=== PATIENT | female | born 1935 | race Caucasian/White ===

== ENCOUNTER 2021-09-03 18:27 | Observation (INO) | payer MEDICARE ==
[2021-09-03 18:47] LABS: #Eosinphils 0.5 thou/uL (0.0-0.7); #Lymphocytes 1.7 thou/uL (1.20-3.40); #Monocytes 0.8 thou/uL (0.11-0.59); #Neutrophils 3.9 thou/uL (1.40-6.50); %Basophils 0.7 % (0.0-1.0); %Eosinophils 6.9 % (0.0-10.0); %Lymphocytes 24.8 % (21.0-51.0); %Monocytes 11.6 % (0.0-10.0); Hemoglobin 13.6 g/dL (12.0-16.0); Mean Corpuscular HGB CONC 34.4 g/dL (32.0-36.0); Mean Corpuscular Hemoglobin 33.9 pg (27.0-31.0); Mean Corpuscular Volume 98.4 fL (78.0-98.0); Mean Platelet Volume 7.3 fL (7.4-10.4); Platelet Count 232 thou/uL (130-400); RBC Distribution Width 12.3 % (11.5-14.5); White Blood Cell (WBC) Count 6.9 thou/uL (4.8-10.8)
[2021-09-03 18:57] LABS: INR-International Normal Ratio 1.3; Prothrombin Time 16.4 sec (12.0-14.7)
[2021-09-03 18:59] LABS: PTT 33.8 sec (22.9-36.1)
[2021-09-03 19:09] LABS: ALT (SGPT) 41 U/L (8-55); AST (SGOT) 48 U/L (5-34); Albumin 3.8 g/dL (3.4-4.8); Alkaline Phosphatase 110 U/L (40-110); Anion Gap 15 mmol/L (10-20); BUN (Urea Nitrogen) 47 mg/dL (9.8-20.1); Bilirubin, Total 0.6 mg/dL (0.2-1.2); CK (CPK) 72 U/L (29-168); Calc. Creatinine Clearance 0 mL/min (70-130); Calcium 9.3 mg/dL (7.8-10.44); Carbon Dioxide 30 mmol/L (23-31); Chloride 90 mmol/L (98-107); Globulin 3.1 g/dL (2.4-3.5); Glucose 102 mg/dL (83-110); Potassium 3.8 mmol/L (3.5-5.1); Protein, Total 6.9 g/dL (5.8-8.1); Sodium 131 mmol/L (136-145)
[2021-09-03] MEDS ORDERED: Aspirin Chewable 81 MG TAB ONE (19:31)
[2021-09-03 22:08] LABS: Bilirubin Negative (Negative); Blood, Urine Negative (Negative); Clarity Clear (Clear); Glucose, Urine (Dipstick) Normal (Negative); Ketone, Urine Negative (Negative); Leukocyte Negative Leu/uL (Negative); Nitrite Negative (Negative); Protein, Urine (Dipstick) Negative (Neg-Trace); Specific Gravity, Urine 1.011 (1.002-1.036); Urobilinogen Normal mg/dL (Less than 2); pH, Urine 6.5 (5.0-9.0)
[2021-09-03] MEDS ORDERED: Acetaminophen 325 MG TAB PO PRN (23:03)
[2021-09-03] MEDS ORDERED: Ondansetron PF 4 MG/2 ML Vial IVP PRN (23:03)
[2021-09-03] MEDS ORDERED: Sodium Chloride 0.9% 1,000 ML IV SCH (23:45)
[2021-09-03] MEDS ORDERED: hydrALAZINE 20 MG/ML VIAL SLOW IVP PRN (23:49)
[2021-09-04 00:38] LABS: SARS-CoV-2 NAA Rapid Test Not Detected (NotDetected)
[2021-09-04 02:58] LABS: #Eosinphils 0.5 thou/uL (0.0-0.7); #Lymphocytes 1.6 thou/uL (1.20-3.40); #Monocytes 0.7 thou/uL (0.11-0.59); #Neutrophils 3.4 thou/uL (1.40-6.50); %Basophils 0.8 % (0.0-1.0); %Eosinophils 8.5 % (0.0-10.0); %Lymphocytes 25.4 % (21.0-51.0); %Monocytes 11.2 % (0.0-10.0); %Neutrophils 54.2 % (42.0-75.0); Hemoglobin 12.3 g/dL (12.0-16.0); Mean Corpuscular HGB CONC 34.9 g/dL (32.0-36.0); Mean Corpuscular Hemoglobin 33.8 pg (27.0-31.0); Mean Corpuscular Volume 96.8 fL (78.0-98.0); Mean Platelet Volume 7.2 fL (7.4-10.4); Platelet Count 205 thou/uL (130-400); RBC Distribution Width 12.1 % (11.5-14.5); Red Blood Cell (RBC) Count 3.65 mill/uL (4.20-5.40); White Blood Cell (WBC) Count 6.2 thou/uL (4.8-10.8)
[2021-09-04 03:33] LABS: Chloride 90 mmol/L (98-107); Sodium 127 mmol/L (136-145)
[2021-09-04 03:34] LABS: Calcium 8.9 mg/dL (7.8-10.44); Glucose 117 mg/dL (83-110); Triglycerides 95 mg/dL (Less than 150)
[2021-09-04 03:36] LABS: Anion Gap 13 mmol/L (10-20); Carbon Dioxide 27 mmol/L (23-31)
[2021-09-04 03:37] LABS: Calc. Creatinine Clearance 0 mL/min (70-130)
[2021-09-04 03:38] LABS: BUN (Urea Nitrogen) 43 mg/dL (9.8-20.1)
[2021-09-04 03:39] LABS: Cholesterol 120 mg/dl (< 200 Desired)
[2021-09-04 03:40] LABS: Cardiac Risk 2.5 (Less than 4.5); HDL Cholesterol 48 mg/dL (>60 Neg Risk); LDL Cholesterol, Calculated 53 mg/dL
[2021-09-04] MEDS ORDERED: Potassium Chloride 20 MEQ TAB PO SCH (04:15)
[2021-09-04] MEDS ORDERED: Potassium Chloride 20 MEQ TAB ONE (04:32)
[2021-09-04] MEDS ORDERED: Heparin 5,000 UNITS/ML VIAL SC SCH (09:00)
[2021-09-04] MEDS: Aspirin 81 mg Enteric Coated Tablet PO SCH (10:26)
[2021-09-04 11:07] VITALS: BMI 27.9
[2021-09-04 11:17] LABS: Anion Gap 14 mmol/L (10-20); BUN (Urea Nitrogen) 36 mg/dL (9.8-20.1); Calc. Creatinine Clearance 40 mL/min (70-130); Calcium 9.4 mg/dL (7.8-10.44); Carbon Dioxide 26 mmol/L (23-31); Chloride 93 mmol/L (98-107); Glucose 119 mg/dL (83-110); Potassium 4.2 mmol/L (3.5-5.1); Sodium 129 mmol/L (136-145)
[2021-09-04] MEDS ORDERED: Atorvastatin Calcium 40 MG TAB PO SCH (21:00)
[2021-09-04] MEDS ORDERED: Pramipexole Di-HCl 0.25 MG TAB PO SCH (21:00)
[2021-09-04] MEDS: Gabapentin 300 MG CAP PO SCH (21:01)
[2021-09-04] MEDS: Apixaban 5 MG TAB PO SCH (21:01)
[2021-09-05 04:26] LABS: #Eosinphils 0.5 thou/uL (0.0-0.7); #Lymphocytes 1.6 thou/uL (1.20-3.40); #Monocytes 0.6 thou/uL (0.11-0.59); #Neutrophils 2.8 thou/uL (1.40-6.50); %Basophils 0.8 % (0.0-1.0); %Eosinophils 8.7 % (0.0-10.0); %Lymphocytes 28.3 % (21.0-51.0); %Monocytes 11.5 % (0.0-10.0); %Neutrophils 50.7 % (42.0-75.0); Hemoglobin 12.8 g/dL (12.0-16.0); Mean Corpuscular HGB CONC 34.8 g/dL (32.0-36.0); Mean Corpuscular Volume 97.7 fL (78.0-98.0); Platelet Count 219 thou/uL (130-400); RBC Distribution Width 12.3 % (11.5-14.5); Red Blood Cell (RBC) Count 3.78 mill/uL (4.20-5.40); White Blood Cell (WBC) Count 5.5 thou/uL (4.8-10.8)
[2021-09-05 04:45] LABS: Anion Gap 10 mmol/L (10-20); BUN (Urea Nitrogen) 28 mg/dL (9.8-20.1); Calc. Creatinine Clearance 47 mL/min (70-130); Calcium 8.9 mg/dL (7.8-10.44); Carbon Dioxide 28 mmol/L (23-31); Chloride 97 mmol/L (98-107); Glucose 108 mg/dL (83-110); Magnesium 1.8 mg/dL (1.6-2.6); Potassium 3.5 mmol/L (3.5-5.1); Sodium 131 mmol/L (136-145)
[2021-09-05] MEDS: Apixaban 5 MG TAB PO SCH (08:27)
[2021-09-05] MEDS: Aspirin 81 mg Enteric Coated Tablet PO SCH (08:27)
[2021-09-05] MEDS: Gabapentin 300 MG CAP PO SCH (08:28)
[2021-09-05] MEDS ORDERED: Furosemide 20 MG TAB PO SCH (09:00)
[2021-09-05 11:46] VITALS: TEMP 97.6
[2021-09-05 15:14] VITALS: BP 171/84
== END 2021-09-05 15:27 | disposition home or self-care (01) ==
LOC: ERS 18:27 → ERHOLD 22:37 → NEURO 09-04 09:56
PROVIDERS: ADMIT Internal Medicine; ATTEND Physician Assistant
DX: R47.81 Slurred speech (principal); R41.0 Disorientation, unspecified; R47.1 Dysarthria and anarthria; N17.9 Acute kidney failure, unspecified; E87.1 Hypo-osmolality and hyponatremia; I11.0 Hypertensive heart disease with heart failure; I50.9 Heart failure, unspecified; I73.9 Peripheral vascular disease, unspecified; G25.81 Restless legs syndrome; I69.351 Hemiplegia and hemiparesis following cerebral infarction affecting right dominant side; I69.311 Memory deficit following cerebral infarction; R26.89 Other abnormalities of gait and mobility; I08.3 Combined rheumatic disorders of mitral, aortic and tricuspid valves; Z79.01 Long term (current) use of anticoagulants; Z79.899 Other long term (current) drug therapy; Z20.822 Contact with and (suspected) exposure to COVID-19
CPT/HCPCS: 51701; 70450; 70551; 80048 ×3; 80053; 80061; 81003; 82550; 83605; 83735 ×2; 83930; 83935; 84300; 84484; 85025 ×3; 85610; 85730; 93005; 93306; 93880; 97139 ×2; 99285; G0378 ×4; U0002; 36415; J1644; J7050